=== PATIENT | female | born 1990 | race Caucasian/White ===

== ENCOUNTER 2021-03-21 23:55 | Emergency (ER) | payer OTHER ==
[2021-03-22 00:30] VITALS: BP 124/79; PULSE 92; TEMP 98.2; BMI 32.3
== END 2021-03-22 01:37 ==
LOC: JER 23:55
DX: S61.211A Laceration without foreign body of left index finger without damage to nail, initial encounter (principal); W26.0XXA Contact with knife, initial encounter; Y93.G1 Activity, food preparation and clean up
CPT/HCPCS: 99281-25

== ENCOUNTER 2023-09-08 10:55 | Emergency (ER) | payer OTHER ==
[2023-09-08 11:07] VITALS: RESP 20; BMI 27.3
[2023-09-08] MEDS ORDERED: KETOROLAC TROMETHAMINE 30 MG/1 ML VIAL ONE (12:08)
[2023-09-08] MEDS: KETOROLAC TROMETHAMINE 30 MG/1 ML VIAL IVPUSH ONE (12:25)
[2023-09-08 12:44] LABS: BASO % 0.8 % (0-2.0); EOS % 0.4 % (0-4.5); HEMATOCRIT 33.8 % (32.4-45.2); HEMOGLOBIN 10.6 GM/dL (10.7-15.3); LYMPH % 27.3 % (8-40); MCH 25.5 pg (25.7-33.7); MCHC 31.2 g/dl (32.0-36.0); MEAN CELL VOLUME 81.7 fl (80-96); MEAN PLT VOLUME 9.2 fl (7.5-11.1); MONO % 8.8 % (3.8-10.2); NEUT % 62.7 % (42.8-82.8); PLATELET COUNT 259 10^3/uL (134-434); RBC 4.14 M/mm3 (3.60-5.2); RDW 16.7 % (11.6-15.6); WHITE BLOOD COUNT 6.7 K/mm3 (4.0-10.0)
[2023-09-08 12:49] LABS: CHLORIDE 104 mmol/L (98-107); SODIUM 124 mmol/L (136-145)
[2023-09-08 12:51] LABS: ALBUMIN 3.2 g/dl (3.4-5.0); BLOOD UREA NITROGEN 10.8 mg/dL (7-18); CALCIUM 7.7 mg/dL (8.5-10.1); CO2 28 mmol/L (21-32); GLUCOSE,RANDOM 87 mg/dL (74-106)
[2023-09-08 12:54] LABS: CREATININE 0.7 mg/dL (0.55-1.3)
[2023-09-08 12:57] LABS: ALK PHOS 52 U/L (45-117); TOT PROT 8.5 g/dl (6.4-8.2)
[2023-09-08 13:10] LABS: ANION GAP -8 mmol/L (4-13); POTASSIUM > 10.0 mmol/L (3.5-5.1)
[2023-09-08 14:24] LABS: PH,URINE 6.5 (5.0-8.0); URINE APPEARANCE CLEAR; URINE BILIRUBIN NEGATIVE (NEGATIVE); URINE COLOR YELLOW; URINE GLUCOSE (UA) NEGATIVE (NEGATIVE); URINE KETONE NEGATIVE (NEGATIVE); URINE LEUK ESTERASE NEGATIVE (NEGATIVE); URINE NITRITE NEGATIVE (NEGATIVE); URINE PROTEIN NEGATIVE (NEGATIVE); URINE UROBILINOGEN 0.2 mg/dL (0.2-1.0)
[2023-09-08 14:26] LABS: HCG,QUALITATIVE URINE Negative
[2023-09-08 14:37] LABS: POTASSIUM 4.3 mmol/L (3.5-5.1)
[2023-09-08 14:40] LABS: ALBUMIN 3.4 g/dl (3.4-5.0); BLOOD UREA NITROGEN 10.4 mg/dL (7-18); CALCIUM 8.6 mg/dL (8.5-10.1)
[2023-09-08 14:43] LABS: CREATININE 0.7 mg/dL (0.55-1.3)
[2023-09-08 14:44] LABS: BILIRUBIN,TOTAL 0.3 mg/dL (0.2-1); TOT PROT 6.9 g/dl (6.4-8.2)
[2023-09-08 18:23] VITALS: BP 103/62; PULSE 61; TEMP 98.1
[2023-09-08] MEDS ORDERED: FLUCONAZOLE 150 MG TABLET PO ONE (18:55)
[2023-09-08] MEDS: FLUCONAZOLE 150 MG TABLET PO ONE (19:00)
== END 2023-09-08 19:13 | disposition home or self-care (01) ==
LOC: JER 10:55 → EDBD 10:55 → JER 19:13
PROC: 3E0333Z Introduction of Anti-inflammatory into Peripheral Vein, Percutaneous Approach (ICD-10-PCS; principal; 2023-09-08)
DX: R30.0 Dysuria (principal); R35.0 Frequency of micturition; B37.31 Acute candidiasis of vulva and vagina; R39.15 Urgency of urination; R31.9 Hematuria, unspecified; M54.50 Low back pain, unspecified; R10.9 Unspecified abdominal pain
CPT/HCPCS: 36415; 74176-TC; 76775-TC; 76856-TC; 80053; 81003; 84703; 85025; 87086; 87491; 87591; 99285-25

== ENCOUNTER 2024-04-14 04:28 | Day surgery (SDC) | payer OTHER ==
[2024-04-10 16:32] VITALS: BMI 27.4
[2024-04-14] MEDS ORDERED: PROPOFOL 20 ML ONE (15:02)
[2024-04-14 16:07] VITALS: RESP 16; TEMP 97.8
[2024-04-14 16:54] VITALS: BP 110/60; PULSE 68
== END 2024-04-14 16:56 | disposition home or self-care (01) ==
LOC: JASU-SURG 04:28
PROVIDERS: ATTEND Urology
PROC: 0TF3XZZ Fragmentation in Right Kidney Pelvis, External Approach (ICD-10-PCS; principal; 2024-04-14 16:00)
DX: N20.0 Calculus of kidney (principal)
CPT/HCPCS: 81025

== ENCOUNTER 2024-04-30 17:02 | Emergency (ER) | payer OTHER ==
[2024-04-30 17:29] VITALS: BP 110/72; PULSE 88; RESP 18; TEMP 98.2; BMI 29.2
[2024-04-30 18:28] LABS: BASO % 0.6 % (0-2.0); EOS % 0.8 % (0-4.5); HEMATOCRIT 33.4 % (32.4-45.2); HEMOGLOBIN 10.8 GM/dL (10.7-15.3); LYMPH % 21.5 % (8-40); MCH 25.8 pg (25.7-33.7); MCHC 32.3 g/dl (32.0-36.0); MEAN PLT VOLUME 8.3 fl (7.5-11.1); MONO % 7.5 % (3.8-10.2); NEUT % 69.6 % (42.8-82.8); PLATELET COUNT 285 10^3/uL (134-434); RBC 4.18 M/mm3 (3.60-5.2); RDW 15.8 % (11.6-15.6); WHITE BLOOD COUNT 9.4 K/mm3 (4.0-10.0)
[2024-04-30 18:42] LABS: URINE APPEARANCE CLEAR; URINE BILIRUBIN NEGATIVE (NEGATIVE); URINE COLOR YELLOW; URINE GLUCOSE (UA) NEGATIVE (NEGATIVE); URINE KETONE NEGATIVE (NEGATIVE); URINE LEUK ESTERASE NEGATIVE (NEGATIVE); URINE NITRITE NEGATIVE (NEGATIVE); URINE PROTEIN NEGATIVE (NEGATIVE); URINE UROBILINOGEN 0.2 mg/dL (0.2-1.0)
[2024-04-30 18:46] LABS: HCG,QUALITATIVE URINE Negative
[2024-04-30 18:56] LABS: POTASSIUM 4.2 mmol/L (3.5-5.1)
[2024-04-30 18:57] LABS: CALCIUM 8.4 mg/dL (8.5-10.1)
[2024-04-30 18:58] LABS: ALBUMIN 3.6 g/dl (3.4-5.0); BLOOD UREA NITROGEN 10.9 mg/dL (7-18)
[2024-04-30 19:01] LABS: CREATININE 0.9 mg/dL (0.55-1.3)
[2024-04-30 19:03] LABS: BILIRUBIN,TOTAL 0.2 mg/dL (0.2-1); TOT PROT 7.1 g/dl (6.4-8.2)
[2024-04-30] MEDS ORDERED: ACETAMINOPHEN INJECTION 100 ML ONE (19:27)
[2024-04-30] MEDS: SODIUM CHLORIDE 1,000 ML IV STA (20:15)
[2024-04-30] MEDS: ACETAMINOPHEN 1000 MG/100 ML BAG IVPB ONE (20:15)
== END 2024-05-01 00:01 | disposition home or self-care (01) ==
LOC: JER 17:02
PROC: 3E033NZ Introduction of Analgesics, Hypnotics, Sedatives into Peripheral Vein, Percutaneous Approach (ICD-10-PCS; principal; 2024-04-30)
PROC: 3E0337Z Introduction of Electrolytic and Water Balance Substance into Peripheral Vein, Percutaneous Approach (ICD-10-PCS; 2024-04-30)
DX: R10.31 Right lower quadrant pain (principal); R10.13 Epigastric pain
CPT/HCPCS: 36415; 74177-TC; 80053; 81003; 83690; 84703; 85025; 87086; 99285-25; J0131; Q9967

== ENCOUNTER 2024-05-26 05:17 | Day surgery (SDC) | payer OTHER ==
[2024-05-22 15:31] VITALS: BMI 27.4
[2024-05-26] MEDS ORDERED: ONDANSETRON 4 MG/2 ML VIAL ONE (15:42)
[2024-05-26] MEDS ORDERED: MIDAZOLAM HCL 2 MG/2 ML SINGLE DOSE VIAL ONE (15:43)
[2024-05-26] MEDS ORDERED: KETOROLAC TROMETHAMINE 30 MG/1 ML VIAL ONE (16:03)
[2024-05-26 16:26] VITALS: RESP 18
[2024-05-26] MEDS: ONDANSETRON *ODT* 4 MG TABLET SL ONE (17:43)
[2024-05-26 18:19] VITALS: BP 117/66; PULSE 72; TEMP 97.8
== END 2024-05-26 18:20 | disposition home or self-care (01) ==
LOC: JASU-SURG 05:17
PROVIDERS: ATTEND Urology
PROC: 0TF4XZZ Fragmentation in Left Kidney Pelvis, External Approach (ICD-10-PCS; principal; 2024-05-26 16:01)
DX: N20.0 Calculus of kidney (principal)
CPT/HCPCS: 81025; Q0162